=== PATIENT | female | born 1960 | race Caucasian/White ===

== ENCOUNTER 2020-10-20 15:38 | Inpatient (IN) | payer OTHER ==
[~2020-10-20] VITALS: Ht 161.3 cm; Wt 52.7 kg
--- NOTE | 2020-10-20 16:11 | NUR ---
ADMIT PT ARRIVES VIA EMS FROM [facility]. SHE IS ON 2L/NC, SITTING IN TRIPOD POSITION WITH OBVIOUS SOA FROM THE TRANSFER FROM COT TO BED. VS ASSESSED, TELEMETRY APPLIED. PT ORIENTED TO ROOM, CALL LIGHT, FACILITY POLICIES. DENIES HISTORY OF FLU/COVID/TETANUS VACCINES. PLEASED TO HEAR FROM THIS NURSE THAT HER PCR TEST FROM ED WAS NEGATIVE.
[2020-10-20 16:31] VITALS: BP 155/72
[2020-10-20 19:36] VITALS: BP 146/74
[2020-10-20] MEDS: ALBUTEROL SULFATE 2.5 MG/3 ML NEBU. NEB SCH (21:12)
[2020-10-20 23:23] VITALS: BP 136/77
[2020-10-20] MEDS: methylPREDNISolone SOD SUCC PF 40 MG/ML VIAL. IV SCH (23:29)
[2020-10-21] MEDS: ALBUTEROL SULFATE 2.5 MG/3 ML NEBU. NEB SCH ×3 (04:50→15:25)
[2020-10-21 05:33] VITALS: BP 148/70
[2020-10-21] MEDS: methylPREDNISolone SOD SUCC PF 40 MG/ML VIAL. IV SCH ×3 (06:19→21:25)
[2020-10-21] MEDS: NICOTINE 21MG PATCH. TD SCH (08:25)
[2020-10-21 11:00] VITALS: BP 125/72
[2020-10-21 15:55] VITALS: BP 135/73
[2020-10-21] MEDS ORDERED: AZITHROMYCIN 250 MG TABLET. PO ONE (16:00)
--- NOTE | 2020-10-21 16:37 | HP ---
ADMIT DATE: 10/20/2020 HISTORY OF PRESENT ILLNESS: The patient is a 60-year-old female patient who apparently has been complaining of stuffy nose with yellowish greenish discharge, cough, shortness of breath that started about a week ago. On Monday, she attempted to see her primary care physician who stated that he will not see her unless she is tested for COVID. On Monday morning, she became extremely short of breath that she ended up at [facility] Emergency Room where she was extensively evaluated, has had lab work and imaging studies. Her white cell count was normal. Her blood gases were within acceptable range. Her chemistry also was unremarkable. Her urinalysis was negative and her coronavirus by PCR was negative. She has had a chest x-ray which showed no acute pulmonary finding; however, CT angio showed the patient has no evidence of pulmonary embolism. She has a tiny ground glass opacities within the right middle lobe, likely infectious, inflammatory. Correlate for pneumonia or pneumonitis. There is no consolidated infiltrate. She has emphysema and hepatic cyst and was basically admitted to [facility] as [facility] was full with a diagnosis of community-acquired pneumonia, acute hypoxic respiratory failure as well as COPD exacerbation. She was treated with IV antibiotic as well as bronchodilator and steroids. PAST MEDICAL HISTORY: Unremarkable. PAST SURGICAL HISTORY: Also unremarkable. ALLERGIES: She has no known drug allergies. MEDICATIONS: She is currently on no medication. FAMILY HISTORY: She has 7 brothers and 1 sister. Her sister has multiple sclerosis. Her father at age of 59 with non-Hodgkin lymphoma. Mother is still alive at the age of 80 and has TIA. SOCIAL HISTORY: She is , has 1 son and 2 daughters. She has been a smoker for 40 years, smokes less than a pack a day, drinks alcohol very occasionally. She continued to smoke marijuana also on a daily basis. She works for [employer]. REVIEW OF SYSTEMS: As per history of present illness. PHYSICAL EXAMINATION: GENERAL: On arrival to the Emergency Room at [facility]. She was clearly tachypneic and hypoxic. There was no pallor, jaundice, cyanosis or thyromegaly. No jugular venous distention. No lower limb edema. VITAL SIGNS: Her heart rate was 86, blood pressure is 126/61, temperature was 98, respiratory rate was 31 and oxygen saturation was 95% on 2 liters of oxygen. HEAD, EYES, EARS, NOSE AND THROAT: Normocephalic, atraumatic. NECK: Supple. HEART: Showed normal first heart sound, no gallop or murmur. CHEST: Shows central trachea, increased anteroposterior diameter, reduced chest expansion, reduced air entry, vesicular breath sounds, few basal crepitation mostly on the right side posteriorly and there are few scattered rhonchi. ABDOMEN: Slightly distended, soft, nontender. NEUROLOGIC: She was grossly intact. LABORATORY DATA: Her lab work done at [facility] showed a white cell count 5600, hemoglobin 14, hematocrit 42, MCV 91, and platelet count of 255,000 with a manual differential of 77% polymorphs, 10% lymphocytes and 10% monocytes. Her serum sodium was 140, potassium 4.3, chloride 104, bicarbonate 26, anion gap of 10, BUN 13, creatinine 0.7. Estimated GFR was 86 mL per minute. His glucose was 119, calcium was 9.1. Total bilirubin, AST, ALT, alkaline phosphatase were normal. Total protein 7.4, albumin was 3.7. Her arterial blood gas showed a pH of 7.42, pCO2 of 39, pO2 of 82, bicarbonate 25 and oxygen saturation was 95% on FiO2 of 21%. Her urinalysis is essentially unremarkable. Her coronavirus by PCR was negative. Her chest x-ray was unremarkable; however, CT angio of the chest showed the patient has no evidence of pulmonary emboli; however, tiny ground glass opacities within the right middle lobe, likely infectious, inflammatory in etiology. She has emphysema and hepatic cyst. ASSESSMENT AND PLAN: The patient was admitted to [facility] with acute hypoxic respiratory failure, community-acquired pneumonia as well as a chronic obstructive pulmonary disease exacerbation. She was started on IV antibiotic in the form of ceftriaxone. I will add Zithromax and methylprednisolone as well as bronchodilator and we will decide on further management accordingly. STIVEN/SIMON BAER: Sheila TID: [id number]
[2020-10-21 19:10] VITALS: BP 116/75
[2020-10-21] MEDS: IPRATRPIUM/ALBUTEROL 0.5/2.5MG 3 ML NEBU. NEB SCH (19:17)
[2020-10-21] MEDS ORDERED: ALBUTEROL SULFATE 2.5 MG/3 ML NEBU. NEB PRN (19:30)
[2020-10-21] MEDS: MONTELUKAST 10 MG TABLET. PO SCH (21:21)
--- NOTE | 2020-10-21 23:09 | PN ---
DATE: 10/21/2020 SUBJECTIVE: The patient is resting, slightly popped up in bed, continued to be somewhat tachypneic, hypoxic, but denied short of breath and denied any chest pain, continued to have cough with yellowish sputum. OBJECTIVE: GENERAL: When I examined her, she looked well and was clearly in no apparent respiratory distress. No pallor, jaundice, cyanosis or thyromegaly. No jugular venous distention. No limb edema. VITAL SIGNS: Her heart rate was 67, blood pressure was 125/72, temperature was 97.8, respiratory rate was 20 and oxygen saturation was 94% on 2 liters of oxygen. HEAD, EYES, EARS, NOSE, AND THROAT: Normocephalic, atraumatic. NECK: Supple. HEART: Normal first and second heart sounds. No gallop or murmur. CHEST: Shows central trachea with increased anteroposterior diameter, reduced chest expansion, reduced air entry, vesicular breath sounds with crepitation mostly in the right side posteriorly and also bilateral scattered rhonchi. ABDOMEN: Soft, nontender. NEUROLOGIC: She was grossly intact. LABORATORY DATA: She has no lab work done today. ASSESSMENT: 1. Acute hypoxic respiratory failure. 2. Community-acquired pneumonia. 3. Chronic obstructive pulmonary disease exacerbation. PLAN: We will continue with methylprednisolone, added DuoNeb, Zithromax, Mucinex and Singulair. I will repeat her lab work again tomorrow and decide on further management accordingly. TERA DR: Sheila TID: [id number]
[2020-10-22] MEDS: IPRATRPIUM/ALBUTEROL 0.5/2.5MG 3 ML NEBU. NEB SCH ×4 (06:01→19:46)
[2020-10-22] MEDS: methylPREDNISolone SOD SUCC PF 40 MG/ML VIAL. IV SCH ×3 (06:05→21:32)
[2020-10-22 06:35] VITALS: BP 151/80
[2020-10-22] MEDS: AZITHROMYCIN 250 MG TABLET. PO SCH (08:29)
[2020-10-22] MEDS: NICOTINE 21MG PATCH. TD SCH (08:30)
[2020-10-22 15:12] VITALS: BP 137/66
[2020-10-22 20:37] VITALS: BP 158/75
[2020-10-22] MEDS ORDERED: LACTOBACILLUS RHAMNOSUS GG 1 CAPSULE. PO SCH (21:00)
[2020-10-22] MEDS: LACTOBACILLUS RHAMNOSUS GG 1 CAPSULE. PO SCH (21:32)
[2020-10-22] MEDS: MONTELUKAST 10 MG TABLET. PO SCH (21:33)
[2020-10-22 23:41] VITALS: BP 136/67
--- NOTE | 2020-10-23 00:53 | PN ---
DATE: 10/22/2020 SUBJECTIVE: The patient is resting, slightly propped up in bed, no apparent respiratory distress. She is now able to slightly propped up in bed and not using her accessory muscles; however, when I examined her she looked well and was somewhat pale, not jaundiced, cyanosed. No lymphadenopathy, no thyromegaly. No jugular vein distention, no lower limb edema. PHYSICAL EXAMINATION: VITAL SIGNS: Her heart rate was 55, blood pressure is 151/80, temperature was 98.4, respiratory rate was 18 and oxygen saturation was 95% on 2 liters of oxygen. HEAD, EYES, EARS, NOSE AND THROAT: Normocephalic, atraumatic. NECK: Supple. HEART: Normal first and second heart sounds, no gallop or murmur. CHEST: Shows central trachea. Increased anteroposterior diameter of the chest with reduced chest expansion, reduced air entry. Diffuse bilateral rhonchi. Could not appreciate any crepitation, although the wheezing is much less than yesterday. ABDOMEN: Soft, nontender. NEUROLOGIC: She was grossly intact. Her intake and output incompletely recorded. No lab work was done today. ASSESSMENT: 1. Acute hypoxic respiratory failure. 2. Community-acquired pneumonia. 3. Chronic obstructive pulmonary disease. PLAN: To continue with IV steroids. Continue with antibiotic. Continue with nebulizer treatment, Mucinex and Singulair. We will evaluate her again tomorrow and if she is much better she can be discharged to continue treatment as an outpatient. NADJA DR: Sheila TID: [id number]
--- NOTE | 2020-10-23 04:43 | NUR ---
Nursing Note The patient remained in her bed for this shift. The patient was calm and pleasant during interactions with this nurse. The patient was curious about one of her medications and this nurse provided information to the patient r/t this medication. The patient took her medication whole. The patient denied pain when assessed. The patients lungs were diminished with some crackles in lower lobes. The patient denies constipation last BM on the . The patient is currently sleeping in he room.
[2020-10-23] MEDS: IPRATRPIUM/ALBUTEROL 0.5/2.5MG 3 ML NEBU. NEB SCH ×2 (04:57→09:27)
[2020-10-23 05:27] VITALS: BP 153/65
[2020-10-23 06:38] LABS: HEMATOCRIT 37.5 % (36.0-47.0); HEMOGLOBIN 12.4 g/dL (12.0-15.5); RED BLOOD COUNT 4.1 x10^6/uL (3.50-5.40); RED CELL DISTRIBUTION WIDTH 13.8 % (11.5-14.5); WHITE BLOOD COUNT 11.5 x10^3/uL (4.0-11.0)
[2020-10-23 06:52] LABS: ALBUMIN 3.2 g/dL (3.4-5.0); ALBUMIN/GLOBULIN RATIO 1.1 (1.0-1.7); CALCIUM 8.2 mg/dL (8.5-10.1); CREATININE 0.6 mg/dL (0.6-1.0); GFR 102.7; POTASSIUM 4.3 mmol/L (3.5-5.1); TOTAL BILIRUBIN 0.4 mg/dL (0.2-1.0); TOTAL PROTEIN 6.1 g/dL (6.4-8.2)
[2020-10-23] MEDS: methylPREDNISolone SOD SUCC PF 40 MG/ML VIAL. IV SCH (08:39)
[2020-10-23] MEDS: AZITHROMYCIN 250 MG TABLET. PO SCH (08:39)
[2020-10-23] MEDS: LACTOBACILLUS RHAMNOSUS GG 1 CAPSULE. PO SCH (08:39)
[2020-10-23 11:17] VITALS: BP 147/67
--- NOTE | 2020-10-23 14:40 | NUR ---
PATIENT IS DISCHARGED HOME, DISCHARGE INSTRUCTIONS AND MEDS REVIEWED, PATIENT VERBALIZED UNDERSTANDING. PATIENT LEFT UNIT VIA AMBUL. PATIENT TAKEN HOME BY FAMILY MEMBER VIA PERSONAL VEHICLE.
--- NOTE | 2020-10-23 19:16 | DS ---
HOSPITAL COURSE: The patient a 60-year-old female patient who was admitted with acute hypoxic respiratory failure, community-acquired pneumonia and COPD exacerbation. She was seen initially at [facility] Emergency Room and was admitted to [facility]. She was started on IV Solu-Medrol, nebulized albuterol and Atrovent as well as antibiotic in the form of ceftriaxone and Zithromax and she did actually very well. When I saw her today, she was sitting in the bed, eating her lunch comfortably, in no apparent distress. She apparently had a 6-minute walk, which showed that her oxygen saturation on exertion was around 90%. PHYSICAL EXAMINATION: GENERAL: When I examined her, there was no pallor, jaundice, cyanosis or thyromegaly. No jugular venous distention. No lower limb edema. VITAL SIGNS: Her heart rate was 67, blood pressure was 147/67, temperature was 97.1, respiratory rate was 18 and oxygen saturation was 94% on room air. HEAD, EYES, EARS, NOSE, AND THROAT: Normocephalic, atraumatic. NECK: Supple. HEART: Showed normal first and second heart sounds. No gallop or murmur. CHEST: Shows central trachea, bilateral equal reduced expansion, reduced air entry, vesicular breath sounds. I could not appreciate any crepitation or rhonchi. ABDOMEN: Soft, nontender. NEUROLOGIC: She is grossly intact. Her intake was 1070, no output was recorded. LABORATORY DATA: Her lab work showed a white cell count of 11,500, hemoglobin 12.4, hematocrit 37.5, MCV 91, and platelet count 281,000. Her chemistry showed a serum sodium 141, potassium 4.3, chloride 108, bicarbonate 30, anion gap of 3, BUN 25, creatinine 0.6. Estimated GFR was 102 mL per minute. Her glucose was 139, calcium was 8.2. Total bilirubin, AST, ALT, alkaline phosphatase were normal. Total protein 6.1, albumin 3.2. DISCHARGE MEDICATIONS: She was discharged home to continue on prednisone tapering course of 40 mg once a day for 3 days, 30 mg once a day for 3 days, 20 mg once a day for 3 days, and 10 mg once a day for 3 days; cefdinir 300 mg twice a day for 7 days; azithromycin 250 mg once a day for 3 days; albuterol inhaler 2 puffs every 4 hours as needed and DuoNeb 0.5/2.5 mg 3 mL by nebulizer 4 times a day. The patient was strongly advised or counseled on quitting smoking and was discharged home to follow with her primary care physician. FINAL DISCHARGE DIAGNOSES: 1. Acute hypoxic respiratory failure. 2. Community-acquired pneumonia. 3. Chronic obstructive pulmonary disease exacerbation. 4. Nicotine addiction. NICA DR: Sheila TID: [id number]
== END 2020-10-23 14:30 | disposition home or self-care (01) | DRG 193 ==
LOC: 1 SOUTH 16:17
PROVIDERS: ADMIT Hospitalist; ATTEND Hospitalist
DX: J18.9 Pneumonia, unspecified organism (principal); J96.01 Acute respiratory failure with hypoxia; J43.9 Emphysema, unspecified; F17.210 Nicotine dependence, cigarettes, uncomplicated; F12.90 Cannabis use, unspecified, uncomplicated; Z82.0 Family history of epilepsy and other diseases of the nervous system; Z80.7 Family history of other malignant neoplasms of lymphoid, hematopoietic and related tissues
CPT/HCPCS: 36415; 80053; 85027; 94640; 94760; 99406; J0696; J2920; J7613